=== PATIENT | female | born 1980 | race African-American/Black ===

== ENCOUNTER → 2016-07-02 | Outpatient (CLI) | payer MEDICAID ==
[~2016-07-02] MED LIST: AKTOB 5 ML5 ML OP; AMOXICILLIN 50500 MG PO; ATARAX 25MG25 MG/TAB PO; ATARAX50 MG PO; ATIVAN 1MG T1 MG/TAB PO; DOXYCYCLINE 10100 MG PO; DULCOLAX S10 MG/SUPP RC; IRON325 M2 PO; MAGCITRATE PO; MAGIC MOUTH PO; MOTRIN 800800 MG/TAB PO; PERCOCET 325 MG1 TA2 PO; SEROQUEL 2525 MG/TAB PO; ZOLOFT 50MG50 MG PO
== END ==
LOC: COL.RAD 11:00
DX: J18.8 Other pneumonia, unspecified organism (principal)
CPT/HCPCS: Q9967

== ENCOUNTER → 2016-07-08 | Outpatient (CLI) | payer MEDICAID | LOC: MC.RAD 12:53 | DX: N63 Unspecified lump in breast (principal) ==

== ENCOUNTER 2016-07-16 18:13 | Emergency (ER) | payer MEDICAID ==
[~2016-07-16] VITALS: Ht 157.5 cm; Wt 128.6 kg
[~2016-07-16 18:13] MED LIST changes: -AMOXICILLIN 50500 MG PO; -ATIVAN 1MG T1 MG/TAB PO; -DOXYCYCLINE 10100 MG PO; -IRON325 M2 PO; -MAGIC MOUTH PO; -MOTRIN 800800 MG/TAB PO; -PERCOCET 325 MG1 TA2 PO
[2016-07-16 18:26] VITALS: BP 125/85; PULSE 79; TEMP 98.8
[2016-07-16] MEDS ORDERED: AMOXICILLIN 50500 MG PO (18:29)
[2016-07-16] MEDS ORDERED: DOXYCYCLINE 10100 MG PO (18:29)
[2016-07-16] MEDS ORDERED: IRON325 M2 PO (18:29)
[2016-07-16] MEDS ORDERED: MAGIC MOUTH PO (19:35)
== END 2016-07-16 19:37 | disposition home or self-care (01) ==
LOC: COL.ER 18:13
DX: J02.0 Streptococcal pharyngitis (principal)

== ENCOUNTER 2016-07-19 05:19 | Day surgery (SDC) | payer MEDICAID ==
[~2016-07-19] VITALS: Ht 157.5 cm; Wt 130.1 kg
[2016-07-19] VITALS (11 sets, daily range): BP systolic 11–116; BP diastolic 51–64; PULSE 59–83; TEMP 97.6–98.2
[~2016-07-19 05:19] MED LIST changes: +AMOXICILLIN 50500 MG PO; +DOXYCYCLINE 10100 MG PO; +IRON325 M2 PO; +MAGIC MOUTH PO
[2016-07-19] MEDS ORDERED: PERCOCET 325 MG1 TA2 PO (07:08)
[2016-07-19] MEDS ORDERED: MOTRIN 800800 MG/TAB PO (07:08)
[2016-07-19 18:21] LABS: HEMATOCRIT 31.2 % (37.0-47.0); HEMOGLOBIN 9.4 g/dl (12.5-16.0)
[2016-07-20 01:15] VITALS: BP 92/53; PULSE 66; TEMP 98.1
[2016-07-20 05:14] VITALS: BP 100/66; PULSE 60; TEMP 97.9
[2016-07-20 06:55] VITALS: BP 101/58; PULSE 76; TEMP 97.8
[2016-07-20 11:12] LABS: HEMATOCRIT 28.7 % (37.0-47.0); HEMOGLOBIN 8.8 g/dl (12.5-16.0)
[2016-07-20 15:25] VITALS: BP 110/49; PULSE 71; TEMP 98.3
== END 2016-07-20 20:00 | disposition home or self-care (01) ==
LOC: SDCO 05:19 → OB 11:30 → SDCO 07-20 20:00
PROVIDERS: Obstetrics & Gynecology
DX: N92.0 Excessive and frequent menstruation with regular cycle (principal); N73.6 Female pelvic peritoneal adhesions (postinfective); K66.1 Hemoperitoneum; N88.8 Other specified noninflammatory disorders of cervix uteri; N83.8 Other noninflammatory disorders of ovary, fallopian tube and broad ligament
CPT/HCPCS: OP; A4315; C1713; E0710; J0690; J1885; J2270; J2405; J2704; J2710; J3010; J7120

== ENCOUNTER 2016-12-13 11:06 | Outpatient (RCR) | payer MEDICAID ==
[~2016-12-13 11:06] MED LIST changes: +MOTRIN 800800 MG/TAB PO; +PERCOCET 325 MG1 TA2 PO
[2016-12-24] MEDS ORDERED: ATIVAN 1MG T1 MG/TAB PO (10:42)
== END 2017-01-15 15:43 | disposition still patient (30) ==
LOC: WSPT 11:06
DX: M54.6 Pain in thoracic spine (principal); G89.29 Other chronic pain

== ENCOUNTER 2016-12-24 08:32 | Emergency (ER) | payer MEDICAID ==
[~2016-12-24] VITALS: Ht 157.5 cm; Wt 129.1 kg
[2016-12-24 08:33] VITALS: TEMP 97.5
[2016-12-24 09:07] LABS: BASO % 0.3 % (0.0-2.0); EOS # 0.1 (0.0-0.7); EOS % 0.9 % (0-4.0); GRAN # 3.5 (1.4-6.5); GRAN % 60.2 % (42.2-75.2); LYMPH # 1.8 (1.2-3.4); LYMPH % 30.6 % (20.0-51.0); MEAN CELL VOLUME 71 fl (80.0-100.0); MEAN CORPUSCULAR HGB CONC 30 g/dl (33.0-37.0); MEAN PLATELET VOLUME 9.2 fl (7.4-10.4); MONO # 0.4 (0.1-0.6); MONO % 7.7 % (1.7-9.3); PLATELET COUNT 304 K/mm3 (130-400); RED BLOOD COUNT 4.98 M/mm3 (4.10-5.30); REDCELL DISTRIBUTION WIDTH-CV 22.7 % (11.5-14.5); WHITE BLOOD COUNT 5.8 K/mm3 (4.8-10.8)
[2016-12-24 09:09] LABS: HEMATOCRIT 35.3 % (37.0-47.0); HEMOGLOBIN 10.6 g/dl (12.5-16.0); MEAN CORPUSCULAR HEMOGLOBIN 21 pg (27.0-31.0)
[2016-12-24 09:18] LABS: ADJUSTED CALCIUM 8.9 mg/dL (8.4-10.2); ALBUMIN 3.9 gm/dL (3.5-5.0); BILIRUBIN,TOTAL 0.5 mg/dL (0.0-1.0); C-REACTIVE PROTEIN 2.8 mg/dL (0.0-0.9); CALCIUM 8.8 mg/dL (8.4-10.2); CREATININE, serum 0.69 mg/dL (0.52-1.25)
[2016-12-24] MEDS ORDERED: ATIVAN 1MG T1 MG/TAB PO (10:42)
[2016-12-24 11:30] VITALS: BP 124/81; PULSE 69
== END 2016-12-24 11:50 | disposition home or self-care (01) ==
LOC: COL.ER 08:32
PROVIDERS: Nurse Practitioner
DX: F41.9 Anxiety disorder, unspecified (principal); F41.0 Panic disorder [episodic paroxysmal anxiety]; F32.9 Major depressive disorder, single episode, unspecified; R20.2 Paresthesia of skin
CPT/HCPCS: J2060; Q9967

== ENCOUNTER 2017-08-27 08:41 | Emergency (ER) | payer MEDICAID ==
[~2017-08-27] VITALS: Ht 157.5 cm; Wt 129.5 kg
[~2017-08-27 08:41] MED LIST changes: +ATIVAN 1MG T1 MG/TAB PO
[2017-08-27 08:48] VITALS: BP 113/63; TEMP 98.1
[2017-08-27] MEDS ORDERED: SAXENDA6 MG/ML (08:51)
[2017-08-27 09:41] LABS: BASO % 0.4 % (0.0-2.0); EOS # 0.1 (0.0-0.7); EOS % 0.9 % (0-4.0); GRAN # 3.2 (1.4-6.5); GRAN % 60.8 % (42.2-75.2); HEMOGLOBIN 13.2 g/dl (12.5-16.0); LYMPH # 1.6 (1.2-3.4); LYMPH % 30.1 % (20.0-51.0); MEAN CELL VOLUME 76 fl (80.0-100.0); MEAN CORPUSCULAR HEMOGLOBIN 24 pg (27.0-31.0); MEAN CORPUSCULAR HGB CONC 31 g/dl (33.0-37.0); MEAN PLATELET VOLUME 8.9 fl (7.4-10.4); MONO # 0.4 (0.1-0.6); MONO % 7.2 % (1.7-9.3); PLATELET COUNT 332 K/mm3 (130-400); RED BLOOD COUNT 5.52 M/mm3 (4.10-5.30); REDCELL DISTRIBUTION WIDTH-CV 19.4 % (11.5-14.5)
[2017-08-27 09:50] LABS: BILIRUBIN,TOTAL 0.3 mg/dL (0.0-1.0); CALCIUM 9.2 mg/dL (8.4-10.2); CREATININE, serum 0.75 mg/dL (0.52-1.25); POTASSIUM 4.2 mmol/L (3.4-5.0)
[2017-08-27 10:52] LABS: COLLECTION METHOD CLEAN CATCH
[2017-08-27 11:04] LABS: MUCOUS Present /lpf; PH 6 (5-8); URINE APPEARANCE Hazy; URINE BACTERIA Rare /hpf; URINE BILIRUBIN Negative (NEGATIVE); URINE BLOOD Negative (NEGATIVE); URINE COLOR Yellow; URINE GLUCOSE Negative (NEGATIVE); URINE KETONE Negative (NEGATIVE); URINE LEUKOCYTE ESTERASE Negative (NEGATIVE); URINE NITRATE Positive (NEGATIVE); URINE PROTEIN(semi-quant) Negative (NEGATIVE); URINE UROBILINOGEN Negative (NEGATIVE)
[2017-08-27] MEDS ORDERED: ZOFRAN ODT4 MG PO (11:25)
[2017-08-27] MEDS ORDERED: MACROBID 1100 MG/CAP PO (11:25)
[2017-08-27 11:48] VITALS: PULSE 68
== END 2017-08-27 11:49 | disposition home or self-care (01) ==
LOC: COL.ER 08:41
PROVIDERS: Physician Assistant
DX: N39.0 Urinary tract infection, site not specified (principal); R11.2 Nausea with vomiting, unspecified; R19.7 Diarrhea, unspecified; F41.9 Anxiety disorder, unspecified; E66.9 Obesity, unspecified; Z68.43 Body mass index [BMI] 50.0-59.9, adult; Z90.710 Acquired absence of both cervix and uterus
CPT/HCPCS: J2550; J7030

== ENCOUNTER → 2017-09-08 | Outpatient (CLI) | payer MEDICAID ==
[~2017-09-08] MED LIST changes: +MACROBID 1100 MG/CAP PO; +NORCO 325 MG-51 TAB PO; +SAXENDA6 MG/ML; +ZOFRAN ODT4 MG PO
== END ==
LOC: COL.RAD 10:05
DX: M54.5 Low back pain (principal)

== ENCOUNTER → 2017-11-28 | Outpatient (CLI) | payer MEDICAID | LOC: COL.RAD 08:15 | DX: M51.16 Intervertebral disc disorders with radiculopathy, lumbar region (principal); M47.816 Spondylosis without myelopathy or radiculopathy, lumbar region; M53.3 Sacrococcygeal disorders, not elsewhere classified ==

== ENCOUNTER 2017-12-15 14:09 | Outpatient (RCR) | payer MEDICAID ==
[2017-12-16] MEDS ORDERED: FLEXERIL 1010 MG/TAB PO (13:58)
== END 2018-02-18 09:30 | disposition home or self-care (01) ==
LOC: WSC 14:09
DX: M47.817 Spondylosis without myelopathy or radiculopathy, lumbosacral region (principal); M53.3 Sacrococcygeal disorders, not elsewhere classified; G89.29 Other chronic pain

== ENCOUNTER → 2017-12-26 | Outpatient (CLI) | payer MEDICAID ==
[~2017-12-26] MED LIST changes: +FLEXERIL 1010 MG/TAB PO
== END ==
LOC: MHCPAIN 08:23
DX: G89.29 Other chronic pain (principal); M47.817 Spondylosis without myelopathy or radiculopathy, lumbosacral region; M53.3 Sacrococcygeal disorders, not elsewhere classified
CPT/HCPCS: G0463

== ENCOUNTER → 2018-02-06 | Outpatient (CLI) | payer MEDICAID | LOC: COL.RAD 12:47 | DX: M25.562 Pain in left knee (principal) ==

== ENCOUNTER 2018-07-01 15:54 | Emergency (ER) | payer MEDICAID ==
[~2018-07-01] VITALS: Ht 157.5 cm; Wt 129.1 kg
[2018-07-01 16:03] VITALS: TEMP 97.9
[2018-07-01] MEDS ORDERED: GLUCOPHAGE500 MG/TAB PO (16:21)
[2018-07-01] MEDS ORDERED: NORCO 325 MG-51 TAB PO (17:23)
[2018-07-01 17:51] VITALS: BP 116/73; PULSE 71
== END 2018-07-01 17:52 | disposition home or self-care (01) ==
LOC: COL.ER 15:54
DX: S83.92XA Sprain of unspecified site of left knee, initial encounter (principal); S50.11XA Contusion of right forearm, initial encounter; E11.9 Type 2 diabetes mellitus without complications; F41.9 Anxiety disorder, unspecified; F32.9 Major depressive disorder, single episode, unspecified; E66.01 Morbid (severe) obesity due to excess calories; Z79.84 Long term (current) use of oral hypoglycemic drugs; Z87.891 Personal history of nicotine dependence; W00.0XXA Fall on same level due to ice and snow, initial encounter
CPT/HCPCS: J1885; L1830; L1846

== ENCOUNTER 2018-07-17 08:31 | Outpatient (RCR) | payer MEDICAID ==
[~2018-07-17 08:31] MED LIST changes: +GLUCOPHAGE500 MG/TAB PO
== END 2018-08-14 09:44 | disposition home or self-care (01) ==
LOC: WSPT 08:31
DX: M17.12 Unilateral primary osteoarthritis, left knee (principal)

== ENCOUNTER 2019-06-07 21:07 | Emergency (ER) | payer MEDICAID ==
[~2019-06-07] VITALS: Ht 157.5 cm; Wt 127.3 kg
[2019-06-07 21:10] VITALS: BP 116/69; TEMP 97.9
[2019-06-07] MEDS ORDERED: GLUCOPHAGE1000 MG PO (21:25)
[2019-06-07 22:08] LABS: COLLECTION METHOD CLEAN CATCH
[2019-06-07 22:25] LABS: MUCOUS Present /lpf; PH 5 (5-8); URINE APPEARANCE Clear; URINE BACTERIA None Seen /hpf; URINE BILIRUBIN Negative (NEGATIVE); URINE BLOOD Negative (NEGATIVE); URINE COLOR Yellow; URINE GLUCOSE Negative (NEGATIVE); URINE KETONE Negative (NEGATIVE); URINE LEUKOCYTE ESTERASE Negative (NEGATIVE); URINE NITRATE Negative (NEGATIVE); URINE PROTEIN(semi-quant) Negative (NEGATIVE); URINE RBC 0-2 /hpf; URINE UROBILINOGEN Negative (NEGATIVE)
[2019-06-07 22:26] LABS: ALBUMIN 4.1 gm/dL (3.5-5.0); BILIRUBIN,TOTAL 0.2 mg/dL (0.0-1.0); CALCIUM 9.5 mg/dL (8.4-10.2); CREATININE, serum 0.72 (0.52-1.25); POTASSIUM 3.8 mmol/L (3.4-5.0); TOTAL PROTEIN 7.9 gm/dL (6.4-8.2)
[2019-06-07 22:35] LABS: STREP SCREEN NEGATIVE
[2019-06-07 22:40] LABS: BASO % 0.3 % (0.0-2.0); EOS # 0.1 (0.0-0.7); GRAN # 4.7 (1.4-6.5); GRAN % 64.3 % (42.2-75.2); HEMATOCRIT 39.2 % (37.0-47.0); HEMOGLOBIN 12.3 g/dl (12.5-16.0); LYMPH % 27.6 % (20.0-51.0); MEAN CELL VOLUME 82 fl (80.0-100.0); MEAN CORPUSCULAR HEMOGLOBIN 26 pg (27.0-31.0); MEAN CORPUSCULAR HGB CONC 31 g/dl (33.0-37.0); MEAN PLATELET VOLUME 9.7 fl (7.4-10.4); MONO # 0.5 (0.1-0.6); MONO % 6.5 % (1.7-9.3); PLATELET COUNT 316 K/mm3 (130-400); RED BLOOD COUNT 4.78 M/mm3 (4.10-5.30)
[2019-06-07] MEDS ORDERED: AMOXICILLIN 8751 TAB PO (23:03)
[2019-06-07 23:16] VITALS: PULSE 73
== END 2019-06-07 23:16 | disposition home or self-care (01) ==
LOC: COL.ER 21:07
PROVIDERS: Emergency Medicine
DX: J03.90 Acute tonsillitis, unspecified (principal)
CPT/HCPCS: J1885

== ENCOUNTER 2019-07-28 14:44 | Emergency (ER) | payer MEDICAID ==
[~2019-07-28] VITALS: Ht 157.5 cm; Wt 129.1 kg
[~2019-07-28 14:44] MED LIST changes: +AMOXICILLIN 8751 TAB PO; +GLUCOPHAGE1000 MG PO
[2019-07-28 14:55] VITALS: BP 126/76; TEMP 97.6
[2019-07-28] MEDS ORDERED: TESSALON P100 MG/CAP PO (15:45)
[2019-07-28 16:56] VITALS: PULSE 79
== END 2019-07-28 16:54 | disposition home or self-care (01) ==
LOC: COL.ER 14:44
DX: J11.1 Influenza due to unidentified influenza virus with other respiratory manifestations (principal); E11.9 Type 2 diabetes mellitus without complications; Z87.891 Personal history of nicotine dependence; Z90.710 Acquired absence of both cervix and uterus; Z98.51 Tubal ligation status; Z79.84 Long term (current) use of oral hypoglycemic drugs

== ENCOUNTER → 2020-01-11 | Outpatient (CLI) | payer MEDICAID ==
[~2020-01-11] MED LIST changes: +TESSALON P100 MG/CAP PO
== END ==
LOC: COL.VAS 12:41
DX: M79.662 Pain in left lower leg (principal); M79.89 Other specified soft tissue disorders

== ENCOUNTER 2020-02-17 16:15 | Outpatient (RCR) | payer MEDICAID | END 2020-03-01 10:39 | disposition home or self-care (01) | LOC: WSPT 16:15 | DX: Z98.890 Other specified postprocedural states (principal) ==

== ENCOUNTER 2021-01-24 19:25 | Emergency (ER) | payer MEDICAID ==
[~2021-01-24] VITALS: Ht 157.5 cm; Wt 125.0 kg
[2021-01-24 19:47] VITALS: TEMP 97.5
[2021-01-24] MEDS ORDERED: DOXYCYCLINE 10100 MG PO (20:25)
[2021-01-24 20:42] VITALS: BP 138/79; PULSE 71
== END 2021-01-24 20:42 | disposition home or self-care (01) ==
LOC: COL.ER 19:25
DX: N76.4 Abscess of vulva (principal); E11.9 Type 2 diabetes mellitus without complications; Z79.4 Long term (current) use of insulin

== ENCOUNTER 2021-03-01 14:49 | Emergency (ER) | payer SELFPAY ==
[~2021-03-01] VITALS: Ht 157.5 cm; Wt 135.5 kg
[2021-03-01 14:55] VITALS: TEMP 98.6
[2021-03-01] MEDS ORDERED: FLEXERIL 1010 MG/TAB PO (16:38)
[2021-03-01 16:54] VITALS: BP 111/86; PULSE 70
== END 2021-03-01 16:57 | disposition home or self-care (01) ==
LOC: COL.ER 14:49
DX: S13.4XXA Sprain of ligaments of cervical spine, initial encounter (principal); M54.6 Pain in thoracic spine; E11.9 Type 2 diabetes mellitus without complications; Z79.84 Long term (current) use of oral hypoglycemic drugs; V43.52XA Car driver injured in collision with other type car in traffic accident, initial encounter
CPT/HCPCS: J1885

== ENCOUNTER 2021-07-24 12:42 | Emergency (ER) | payer MEDICAID ==
[~2021-07-24] VITALS: Ht 157.5 cm; Wt 137.3 kg
[2021-07-24 12:52] VITALS: TEMP 97.9
[2021-07-24] MEDS ORDERED: PROAIR HFA0.09 MG/AC IH (15:00)
[2021-07-24 15:25] VITALS: BP 134/99; PULSE 81
== END 2021-07-24 15:18 | disposition home or self-care (01) ==
LOC: COL.ER 12:42
DX: J98.01 Acute bronchospasm (principal); J06.9 Acute upper respiratory infection, unspecified; F17.290 Nicotine dependence, other tobacco product, uncomplicated; Z20.822 Contact with and (suspected) exposure to COVID-19

== ENCOUNTER 2021-12-18 13:00 | Outpatient (RCR) | payer MEDICAID ==
[~2021-12-18 13:00] MED LIST changes: +PROAIR HFA0.09 MG/AC IH
== END 2021-12-23 | disposition home or self-care (01) ==
LOC: PT.GENESIS
DX: Z98.890 Other specified postprocedural states (principal)

== ENCOUNTER 2022-07-22 14:15 | Outpatient (RCR) | payer MEDICAID | END 2022-07-23 | disposition home or self-care (01) | LOC: WSPT | DX: Z96.652 Presence of left artificial knee joint (principal) ==

== ENCOUNTER 2022-08-21 13:30 | Outpatient (RCR) | payer MEDICAID | END 2022-08-23 | disposition home or self-care (01) | LOC: WSPT | DX: Z96.659 Presence of unspecified artificial knee joint (principal) ==

== ENCOUNTER 2022-09-20 14:15 | Outpatient (RCR) | payer MEDICAID | END 2022-09-22 | disposition home or self-care (01) | LOC: WSPT | DX: Z47.89 Encounter for other orthopedic aftercare (principal); M25.562 Pain in left knee; Z96.652 Presence of left artificial knee joint ==

== ENCOUNTER 2023-02-21 15:45 | Outpatient (RCR) | payer MEDICAID | END 2023-02-22 | disposition home or self-care (01) | LOC: WSPT | DX: Z47.1 Aftercare following joint replacement surgery (principal); M25.562 Pain in left knee; Z96.652 Presence of left artificial knee joint ==

== ENCOUNTER 2023-03-27 15:43 | Outpatient (RCR) | payer MEDICAID ==
[2023-03-30] MEDS ORDERED: ANTIVERT 25MG25 MG PO (23:13)
[2023-03-30] MEDS ORDERED: ZOFRAN ODT4 MG PO (23:13)
== END 2023-03-27 17:00 | disposition home or self-care (01) ==
LOC: WSPT 15:43
DX: Z47.1 Aftercare following joint replacement surgery (principal); M25.562 Pain in left knee; Z96.652 Presence of left artificial knee joint
CPT/HCPCS: G0283-GP

== ENCOUNTER → 2023-07-14 | Outpatient (CLI) | payer MEDICAID ==
[~2023-07-14] MED LIST changes: +ANTIVERT 25MG25 MG PO; +Gadoterate 20 ML VIAL IV ONE
== END ==
LOC: COL.RAD 12:30
DX: M51.36 Other intervertebral disc degeneration, lumbar region (principal); G93.5 Compression of brain; R42 Dizziness and giddiness; G43.709 Chronic migraine without aura, not intractable, without status migrainosus; R68.89 Other general symptoms and signs
CPT/HCPCS: A9575

== ENCOUNTER 2023-12-17 13:03 | Outpatient (RCR) | payer MEDICAID ==
[~2023-12-17 13:03] MED LIST changes: -Gadoterate 20 ML VIAL IV ONE
== END 2023-12-24 | disposition home or self-care (01) ==
LOC: WSPT
DX: M17.12 Unilateral primary osteoarthritis, left knee (principal)

== ENCOUNTER 2024-01-22 10:30 | Outpatient (RCR) | payer MEDICAID | END 2024-01-24 | disposition home or self-care (01) | LOC: WSPT | DX: M17.12 Unilateral primary osteoarthritis, left knee (principal) ==

== ENCOUNTER 2024-01-27 14:27 | Outpatient (RCR) | payer MEDICAID | END 2024-02-23 | disposition home or self-care (01) | LOC: WSPT | DX: M17.12 Unilateral primary osteoarthritis, left knee (principal) ==